=== PATIENT | male | born 1995 | race Caucasian/White ===

== ENCOUNTER 2021-05-17 06:40 | Emergency (ER) | payer MEDICAID, OTHER ==
[~2021-05-17] VITALS: Ht 167.6 cm; Wt 66.0 kg
[2021-05-17 06:46] VITALS: BP 110/72
== END 2021-05-17 08:05 | disposition home or self-care (01) ==
LOC: ER 06:40
DX: Z00.00 Encounter for general adult medical examination without abnormal findings (principal)
CPT/HCPCS: 99283